=== PATIENT | female | born 1985 ===

== ENCOUNTER 2017-08-18 18:55 | Emergency (ER) | payer SELFPAY ==
[2017-08-18 19:21] VITALS: BMI 39.2
== END 2017-08-18 20:38 | disposition home or self-care (01) ==
LOC: H.EROB2 18:55
DX: O47.1 False labor at or after 37 completed weeks of gestation (principal); O26.93 Pregnancy related conditions, unspecified, third trimester; R10.2 Pelvic and perineal pain; O26.853 Spotting complicating pregnancy, third trimester; Z3A.38 38 weeks gestation of pregnancy

== ENCOUNTER 2017-08-18 23:11 | Inpatient (IN) | payer MEDICAID, SELFPAY ==
[2017-08-18 19:21] VITALS: BMI 39.2
[2017-08-18] MEDS ORDERED: Oxytocin 30 units/LR 500ML 30 U/500 ML BAG IV SCH (23:45)
[2017-08-18] MEDS ORDERED: Lactated Ringer's 1,000 ML IV SCH ×2 (23:45)
[2017-08-19] MEDS ORDERED: Oxytocin 10 Units/ml Inj ONE
[2017-08-19] MEDS ORDERED: Oxytocin 10 Units/ml Inj IM ONE (00:05)
--- NOTE | 2017-08-19 00:10 | OBDS ---
MATERNAL INFORMATION Provider Comments: Uncomplicated Spontaneous Vaginal delivery of a viable male infant with BW of and scores of 9 and 9 delivered in cephalic presentation over an intact perineum. Loose true knot seen on the umbilical cord. EBL- 200mls LABOR SUMMARY EDC: 08/27/2017 00:00 LABOR INFORMATION Group B Beta Strep: Negative
[2017-08-19] MEDS ORDERED: Benzocaine/Menthol SPRAY TOP PRN ×2 (00:21→02:08)
[2017-08-19] MEDS ORDERED: Oxycodone/Acetaminophen 5/325 mg Tab PO PRN ×2 (00:21→02:08)
--- NOTE | 2017-08-19 00:21 | OBADHP ---
Datetime: 08/18/2017 23:54 Admit Comment, IP Provider: 32 y/o F at 38.5 weeks GA, PUSHPA 08/27/17 by 10 weeks US, presents d ue to regular and painful CTX that are now every 2 minutes. Pt also report scant vaginal bleeding tod ay. No LOF. FM present. All systems reviewed and negative except as above. NKDA Meds: PNV PN Care: Dr Cummins at [facility] PN labs: blood type A pos, antibody neg, GBS neg, RPR neg, HIV neg. OBHx: . 3x . PMHx: denied PSHx: denied FHx: NC SHx: denies tobacco, alcohol or rec drugs. A/P 32 y/o F with IUP at 38.5 weeks GA, in active labor. --Initiate labor protocol. Case discussed with Dr Ramirez, OB salesperson men's hats GTolentino PGY-1. Pelvic Type - PN: Adequate Extremities - PN: Normal Abdomen - PN: Normal Back - PN: Normal Lungs - PN: Normal Heart - PN: Normal HEENT - PN: Normal General - PN: Normal FHR - Baseline A Provider: 150 IP Hx Assessment: The History has been Reviewed and is Current Vital Signs Provider: Reviewed IP Chief Complaint: Uterine contractions; Maternal discomfort NICHD Variability Prov Fetus A: Moderate 6-25bpm NICHD Accel Fetus A IP Provider: 15X15 FHR Category Provider Fetus A: Category I Dilatation, Provider: 9 Effacement, Provider: 100 Station, Provider: 0 Genitourinary Exam: Normal EGA AdmitDate IP: 38.6 IP Adm Impression: Term, intrauterine ; Active labor IP Admit Plan: Admit to unit; Initiate labor protocol Datetime: 08/18/2017 20:30 Thyroid - PN: Normal Neurologic - PN: Normal Contraction Comments Provider: every _10 min, irregular Comments, ACOG Physical Exam: Bedside US: cephalic presentation.
[2017-08-19 01:06] LABS: BASO % 0.3 % (0.0-2.0); EOS % 0.2 % (0.0-4.0); HEMOGLOBIN 13.2 g/dL (12.0-16.0); LYMPH # 1.6 K/uL (1.0-4.3); LYMPH % 14.8 % (20.0-40.0); MEAN CELL VOLUME 88.3 fl (81.0-99.0); MEAN CORPUSCULAR HEMOGLOBIN 30.2 pg (27.0-31.0); MEAN CORPUSCULAR HGB CONC 34.2 g/dL (33.0-37.0); MEAN PLATELET VOLUME 9.4 fl (7.2-11.7); MONO # 0.5 K/uL (0.0-0.8); MONO % 4.8 % (0.0-10.0); NEUT # 8.5 K/uL (1.8-7.0); NEUT % 79.9 % (50.0-75.0); NRBC % 0.1 % (0.0-0.0); RBC 4.38 Mil/uL (3.80-5.20); WHITE BLOOD COUNT 10.7 K/uL (4.8-10.8)
[2017-08-19 01:15] VITALS: O2SAT 100
[2017-08-19] MEDS ORDERED: Lactated Ringer's 1,000 ML IV SCH (02:08)
--- NOTE | 2017-08-19 02:11 | CP.PCM.PCO ---
Physician Communication Note - Physician Communication Note Physician Communication Note: Pt at increased risk for post- depression.
[2017-08-19 06:37] LABS: HEMOGLOBIN 12.2 g/dL (12.0-16.0); MEAN CELL VOLUME 88.5 fl (81.0-99.0); MEAN CORPUSCULAR HEMOGLOBIN 29.9 pg (27.0-31.0); MEAN CORPUSCULAR HGB CONC 33.8 g/dL (33.0-37.0); RBC 4.06 Mil/uL (3.80-5.20); RED CELL DISTRIBUTION WIDTH 13.8 % (11.5-14.5); WHITE BLOOD COUNT 12.4 K/uL (4.8-10.8)
--- NOTE | 2017-08-19 09:27 | OBPPN ---
Datetime: 08/19/2017 06:08 PP Pain Prov: Within normal limits PP Nausea Prov: Denies PP Flatus Prov: No PP BM Prov: No PP Heart Prov: Normal PP Lungs Prov: Normal PP Abdomen/Uterus Prov: Normal PP CVA Tenderness Prov: Normal PP Extremities Prov: Normal PP C/S Incision Prov: Not Applicable PP Progress Prov: Normal PP Impression Prov: Normal progression PP Plan Prov: Continue present management PP Progress Note Prov: 32 y/o F now , s/p on 08/18/17 at 23:56. Pt c/o pelvic pain that improves partially with Ibuprofen. Pt afebrile, tolerating PO, has good appetite with NO acute event s overnight. Pt able to ambulate. Pt has not urinated since delivery, not passing gases and NO bowel movement yet. Pt with NO difficulties. Lochia more than menses. Pt denies headache, diz ziness, CP, SOB, N/V or calf tenderness All systems reviewed and negative except as above. O: PE: -Gen: A_O, resting comfortably on bed, NAD. -Lungs: CTAB, No W/R/R. -CV: RRR, S1 and S2 present. -ABD: soft, BS +, firm fundus at umbilicus. -EXT: No cyanosis, non-tender calves. A/P: 32 y/o F on PPD 1, stable, recovering from NVD --Continue with post- management. -- and ambulation encouraged. --Anticipated discharge 08/20/17. Case discussed with OB command and control systems integrator Pio PGY-[address] Brandt: Patient evaluated independently and I agree with the above IP PP Procedures: None Vital Signs Provider PP: Reviewed
--- NOTE | 2017-08-19 14:21 | OBHP ---
Datetime: 08/18/2017 23:54 IP Adm Impression: Term, intrauterine ; Active labor IP Admit Plan: Admit to unit; Initiate labor protocol Admit Comment, IP Provider: 32 y/o F at 38.5 weeks GA, PUSHPA 08/27/17 by 10 weeks US, presents d ue to regular and painful CTX that are now every 2 minutes. Pt also report scant vaginal bleeding tod ay. No LOF. FM present. All systems reviewed and negative except as above. NKDA Meds: PNV PN Care: Dr Cummins at [facility] PN labs: blood type A pos, antibody neg, GBS neg, RPR neg, HIV neg. OBHx: . 3x . PMHx: denied PSHx: denied FHx: NC SHx: denies tobacco, alcohol or rec drugs. A/P 32 y/o F with IUP at 38.5 weeks GA, in active labor. --Initiate labor protocol. Case discussed with Dr Ramirez, OB merchandising consultant GToleniraj PGY-1. Pelvic Type - PN: Adequate Extremities - PN: Normal Abdomen - PN: Normal Back - PN: Normal Lungs - PN: Normal Heart - PN: Normal HEENT - PN: Normal General - PN: Normal FHR - Baseline A Provider: 150 IP Hx Assessment: The History has been Reviewed and is Current EGA AdmitDate IP: 38.6 Vital Signs Provider: Reviewed IP Chief Complaint: Uterine contractions NICHD Variability Prov Fetus A: Moderate 6-25bpm NICHD Accel Fetus A IP Provider: 15X15 FHR Category Provider Fetus A: Category I Dilatation, Provider: 9 Effacement, Provider: 100 Station, Provider: 0 Genitourinary Exam: Normal Datetime: 08/18/2017 20:30 Thyroid - PN: Normal Neurologic - PN: Normal Contraction Comments Provider: every _10 min, irregular Comments, ACOG Physical Exam: Bedside US: cephalic presentation.
--- NOTE | 2017-08-20 10:32 | OBDCSUM ---
Datetime: 08/20/2017 06:17 Discharged to, Provider: Home Follow up at, Provider: [facility] Disch Instr Activity: Normal activity; May be up to bathroom; May be up for meals; May Shower Disch Instr Diet: Regular Discharge Instructions, Provider: Routine instructions given Discharge Diagnosis, Provider: Term Delivered Discharge Time: 08/20/2017 06:17 Follow up in weeks, Provider: 6 weeks Disch Referrals: None Disch Activity Restrictions: No exercising; No lifting; Minimize stair-climbing; No sexual activity; Nothing in vagina - [place], tampons, douche Discharge Comment, Provider: -F/u with PCP, Dr Cummins in 6 weeks (09/24/17 at 11:30am) for post- examination. -Rx for Ibuprofen for pain and Colace for bowel movement enhancement - and ambulation encouraged. -Pt instructed to go to ER if fever, intolerable pain, nausea or profuse vaginal bleeding. [facility] - pt seen on [facility] this morning. Agree with PGY1 note YINA
--- NOTE | 2017-08-20 10:32 | OBPPN ---
Datetime: 08/20/2017 06:11 PP Pain Prov: Within normal limits PP Nausea Prov: Denies PP Flatus Prov: No PP BM Prov: No PP Heart Prov: Normal PP Lungs Prov: Normal PP Abdomen/Uterus Prov: Normal PP Lochia Prov: Normal PP CVA Tenderness Prov: Normal PP Extremities Prov: Normal PP C/S Incision Prov: Not Applicable PP Progress Prov: Abnormal PP Impression Prov: Normal progression PP Plan Prov: Discharge PP Progress Note Prov: 32 y/o F now , s/p on 08/18/17. Pt c/o headache that began last night, constant and moderare in intensity. Pelvic pain is minimal. Pt afebrile, tolerating PO, has go od appetite with NO acute events overnight. Pt able to ambulate. Pt voiding with no issues. Pt is not passing gases and NO bowel movement. Pt feels the urge for bowel movement but has not done so yet. P t pumping her breastmilk due to hypoglycemic . Lochia less than menses. Pt denies dizziness, C P, SOB, N/V or calf tenderness All systems reviewed and negative except as above. O: PE: -Gen: A_O, resting comfortably on bed, NAD. -Lungs: CTAB, No W/R/R. -CV: RRR, S1 and S2 present. -ABD: soft, BS +, firm fundus below umbilicus. -EXT: No cyanosis, non-tender calves. A/P: 32 y/o F on PPD 1, stable, recovering well from NVD. --Will discharge home today. --F/u with PCP, Dr Cummins in 6 weeks (09/24/17 at 11:30am) for post- examination. --Rx for Ibuprofen for pain and Colace for bowel movement enhancement -- and ambulation encouraged. --Pt instructed to go to ER if fever, intolerable pain, nausea or profuse vaginal bleeding. Case discussed with OB market intelligence consultant Pio PGY-1 [facility]. Agree with PGY1 note YINA BERG PP Procedures: None Vital Signs Provider PP: Reviewed
[2017-08-20 17:52] VITALS: BP 112/76; PULSE 83; RESP 18; TEMP 98.2
== END 2017-08-20 12:45 | disposition home or self-care (01) | DRG 775 ==
LOC: H.EROB2 23:11 → H.L&D 23:50 → H.OB/GYN 08-19 02:17
PROVIDERS: ADMIT Obstetrics & Gynecology; ATTEND Obstetrics & Gynecology
PROC: 10E0XZZ Delivery of Products of Conception, External Approach (ICD-10-PCS; principal; 2017-08-18)
PROC: 4A1HXCZ Monitoring of Products of Conception, Cardiac Rate, External Approach (ICD-10-PCS; 2017-08-18)
DX: O69.2XX0 Labor and delivery complicated by other cord entanglement, with compression, not applicable or unspecified (principal); Z37.0 Single live birth; Z3A.38 38 weeks gestation of pregnancy

== ENCOUNTER 2018-05-22 16:48 | Inpatient (IN) | payer MEDICAID, OTHER ==
[2018-05-22 16:49] VITALS: BMI 39.2
[2018-05-22] MEDS ORDERED: Clindamycin 600mg/50ml D5W 600 MG/50 ML VIAL IVPB STA (18:35)
--- NOTE | 2018-05-22 18:47 | ED PDOC ---
Lower Extremity Pain/Injury Time Seen by Provider: 05/22/18 17:46 Chief Complaint (Nursing): Abnormal Skin Integrity Chief Complaint (Provider): Abnormal Skin Integrity History Per: Patient History/Exam Limitations: no limitations Onset/Duration Of Symptoms: Days (x5) Current Symptoms Are (Timing): Still Present Additional Complaint(s): 33 y/o female presents to the ED for the swelling of her right buttock and perineal area onset 5 days ago. Pt. reports tactile fever yesterday. Otherwise, patient denies abdominal pain, urinary symptoms, difficulty with BMs or any other symptoms. PMD: Josh Castillo Past Medical History Reviewed: Historical Data, Nursing Documentation, Vital Signs Vital Signs: Last Vital Signs Temp 99.8 F H 05/22/18 17:25 Pulse 94 H 05/22/18 17:25 Resp 16 05/22/18 17:25 BP 124/75 05/22/18 17:25 Pulse Ox 99 05/22/18 17:25 - Medical History PMH: No Chronic Diseases - Surgical History Surgical History: No Surg Hx - Family History Family History: States: Unknown Family Hx - Home Medications Home Medications: Ambulatory Orders Medication Instructions Recorded RX: Vit No.126/Iron/Folic 1 tab PO DAILY 08/19/17 [Classic Tablet] RX: Docusate [Colace] 100 mg PO BID #60 cap 08/20/17 RX: Ibuprofen [Motrin Tab] 600 mg PO Q6 PRN #30 tab 08/20/17 - Allergies Allergies/Adverse Reactions: Allergies Allergy/AdvReac Type Severity Reaction Status Date / Time No Known Allergies Allergy Verified 05/22/18 17:25 Review of Systems ROS Statement: Except As Marked, All Systems Reviewed And Found Negative Constitutional: Positive for: Fever Musculoskeletal: Positive for: Other (swelling of right buttocks) Physical Exam - Reviewed Nursing Documentation Reviewed: Yes Vital Signs Reviewed: Yes - Physical Exam Appears: Positive for: Well, No Acute Distress Head Exam: Positive for: ATRAUMATIC, NORMAL INSPECTION, NORMOCEPHALIC Skin: Positive for: Normal Color, Warm, Dry Eye Exam: Positive for: EOMI, Normal appearance, PERRL Cardiovascular/Chest: Positive for: Regular Rate, Rhythm. Negative for: Murmur Respiratory: Positive for: Normal Breath Sounds. Negative for: Wheezing Gastrointestinal/Abdominal: Positive for: Normal Exam, Soft Extremity: Positive for: Normal ROM, Swelling (large area of erythema, tenderness, swelling to right perineal area extending to perinal area with (+) induration, (-) obvious fluctuance. (+) Mild tenderness with no swelling or fluctuance felt on rectal exam ) Neurologic/Psych: Positive for: Alert, Oriented (x3). Negative for: Motor/Sensory Deficits - Laboratory Results Result Diagrams: 05/22/18 18:45 05/22/18 18:45 - ECG ECG: Positive for: Interpreted By Me, Viewed By Me ECG Rhythm: Positive for: Sinus Rhythm. Negative for: ST/T Changes Interpretation Of ECG: no acute ischemic changes noted. QTc at 480 ms Rate: 100 O2 Sat by Pulse Oximetry: 99 (RA) Pulse Ox Interpretation: Normal - Radiology X-Ray: Interpreted by Me X-Ray Interpretation: No Acute Disease Medical Decision Making Medical Decision Making: Time: 17:58 -CMP STAT -UPreg -CBC Time: 18:35 -Pelvis CT - Cleocin 600 mg in 50 ml IVPB -IV access established and labs sent -Case was discussed with surgical technology instructor and Pelvis CT ordered, surg will consult. Time: 21:02 -Zosyn 3.375 gm in 100ml IVPB -NS IV 100mls/hr Pt. made NPO Time:21:[address] FINDINGS: APPENDIX: No evidence of acute appendicitis on CT examination. PERITONEUM: Right perianal enhancing fluid collection is noted measuring 6 x 4.5 x 3.5 cm compatible with an abscess. LYMPH NODES: No lymphadenopathy is evident. REPRODUCTIVE: Unremarkable as visualized. VASCULATURE: No evidence of abdominal aortic aneurysm. BONES: No aggressive appearing osseous lesion. No acute osseous pathology evident. MISCELLANEOUS: Adjacent subcutaneous swelling is noted compatible with cellulitis. IMPRESSION: 1. Right perianal enhancing fluid collection is noted measuring 6 x 4.5 x 3.5 cm compatible with an abscess. 2. Adjacent subcutaneous swelling is noted compatible with cellulitis. Time:21:21 --Patient will be admitted to inpatient care due to perineal abscess and the need for surgical intervention under service of Dr. Darrell Gonzales. Liver enzymes noted to be elevated. Discussed with patient who denies daily drinking and denies any abdominal pain. Repeat abd. exam, abd. soft/nt. Scribe Attestation: Documented by Mallory Vital , acting as a scribe for Sonia Gamino. Provider Scribe Attestation: All medical record entries made by the Scribe were at my direction and personally dictated by me. I have reviewed the chart and agree that the record accurately reflects my personal performance of the history, physical exam, medical decision making, and the department course for this patient. I have also personally directed, reviewed, and agree with the discharge instructions and disposition. Disposition - Clinical Impression Clinical Impression: Abscess - Patient ED Disposition Is Patient to be Admitted: Yes Doctor Will See Patient In The: Hospital Counseled Patient/Family Regarding: Studies Performed, Diagnosis - Disposition Disposition Time: 22:30 Condition: STABLE
[2018-05-22 18:54] LABS: BASO # 0.1 K/uL (0.0-0.2); BASO % 0.5 % (0.0-2.0); EOS % 0.2 % (0.0-4.0); HEMOGLOBIN 12.8 g/dL (12.0-16.0); LYMPH # 1.3 K/uL (1.0-4.3); LYMPH % 11.3 % (20.0-40.0); MEAN CELL VOLUME 85.9 fl (81.0-99.0); MEAN CORPUSCULAR HEMOGLOBIN 28.4 pg (27.0-31.0); MEAN CORPUSCULAR HGB CONC 33.1 g/dL (33.0-37.0); MEAN PLATELET VOLUME 8.2 fl (7.2-11.7); MONO # 0.8 K/uL (0.0-0.8); NEUT # 9.1 K/uL (1.8-7.0); RBC 4.52 Mil/uL (3.80-5.20); RED CELL DISTRIBUTION WIDTH 13.1 % (11.5-14.5); WHITE BLOOD COUNT 11.2 K/uL (4.8-10.8)
[2018-05-22 19:07] LABS: ALB/GLOB RATIO 1.1 (1.0-2.1); ALBUMIN 4.5 g/dL (3.5-5.0); ALT/SGPT 252 U/L (9-52); AST/SGOT 159 U/L (14-36); BLOOD UREA NITROGEN 8 mg/dl (7-17); CALCIUM 9.4 mg/dL (8.4-10.2); GFR NON-AFRICAN AMERICAN > 60
[2018-05-22] MEDS ORDERED: Sodium Chloride 0.9% 50 ML IV ONE (19:57)
[2018-05-22] MEDS ORDERED: Iohexol 300 100 ML IJ ONE (19:57)
[2018-05-22] MEDS ORDERED: Piperacillin/Tazobact 3.375 GM in Sodium Chloride 0.9% 100 ML IVPB STA (21:02)
[2018-05-22] MEDS ORDERED: Piperacillin/Tazobact 3.375 gm Inj IVPB ONE (21:26)
[2018-05-22] MEDS: Sodium Chloride 0.9% 1,000 ML IV SCH (21:43)
--- NOTE | 2018-05-22 21:43 | CP.PCM.HP ---
History of Present Illness - History of Present Illness History of Present Illness: General Surgery H&P CC: Painful R gluteus area. HPI: 33F presents to the ED for pain and swelling of her right gluteus and perianal region, first noticed Saturday. The swelling and pain has progressively worsened and she decided to come in today. She has never had this before. Pt reports subjective fever yesterday and chills today. Reports increased pain upon sitting. Denies headache, dizziness, chest pain, SOB, abd pain, dysuriam, hematuria, melena, hematochezia, pain on defecation.. PMH: Denies PSH: Denies SH: No tobacco, EtOH, or drug use. FH: noncontributory All: NKDA Meds: Vitamins Present on Admission - Present on Admission Any Indicators Present on Admission: No Review of Systems - Review of Systems All systems: reviewed and no additional remarkable complaints except (as per HPI) Past Patient History - Past Social History Smoking Status: Never Smoked Meds Allergies/Adverse Reactions: Allergies Allergy/AdvReac Type Severity Reaction Status Date / Time No Known Allergies Allergy Verified 05/22/18 17:25 Physical Exam - Constitutional Appears: Non-toxic, No Acute Distress - Head Exam Head Exam: ATRAUMATIC, NORMOCEPHALIC - Eye Exam Eye Exam: EOMI. absent: Scleral icterus - ENT Exam ENT Exam: Mucous Membranes Moist - Neck Exam Neck exam: Positive for: Full Rom Additional comments: trachea midline - Respiratory Exam Respiratory Exam: NORMAL BREATHING PATTERN. absent: Respiratory Distress - Cardiovascular Exam Cardiovascular Exam: RRR, +S1, +S2 - GI/Abdominal Exam GI & Abdominal Exam: Soft. absent: Distended, Tenderness - Rectal Exam Rectal Exam: absent: Bloody Stool Additional comments: External: ~6cm area of induration and erythema at 9 oclock. No fluctuation felt. no drainage seen. ROWENA: TTP in 9 oclock direction. No mass or fistula opening felt. No blood seen. Results - Vital Signs Recent Vital Signs: Last Vital Signs Temp 99.8 F H 05/22/18 17:25 Pulse 94 H 05/22/18 17:25 Resp 16 05/22/18 17:25 BP 124/75 05/22/18 17:25 Pulse Ox 99 05/22/18 21:36 - Labs Result Diagrams: 05/22/18 18:45 05/22/18 18:45 Labs: Laboratory Results - last 24 hr 05/22/18 05/22/18 18:45 18:45 WBC 11.2 H RBC 4.52 Hgb 12.8 Hct 38.8 MCV 85.9 D MCH 28.4 MCHC 33.1 RDW 13.1 Plt Count 242 MPV 8.2 Neut % (Auto) 81.0 H Lymph % (Auto) 11.3 L Benzie % (Auto) 7.0 Eos % (Auto) 0.2 Baso % (Auto) 0.5 Neut # (Auto) 9.1 H Lymph # (Auto) 1.3 Benzie # (Auto) 0.8 Eos # (Auto) 0.0 Baso # (Auto) 0.1 Sodium 138 Potassium 3.9 Chloride 101 Carbon Dioxide 26 Anion Gap 15 BUN 8 Creatinine 0.6 L Est GFR ( Amer) > 60 Est GFR (Non-Af Amer) > 60 Random Glucose 106 H Calcium 9.4 Total Bilirubin 1.0 AST 159 H ALT 252 H D Alkaline Phosphatase 153 H Total Protein 8.6 H Albumin 4.5 Globulin 4.2 H Albumin/Globulin Ratio 1.1 - Imaging and Cardiology CT scan - pelvis Status: Image reviewed by me, Report reviewed by me Assessment & Plan - Assessment and Plan (Free Text) Assessment: 33F with R perianal abscess Plan: Apply warm packs to R gluteus region NPO p MN IVF Zosyn Zofran Plan for OR Tomorrow Consent in Chart D/W Dr. Christian Davis PGY4 Decision To Admit - Pt Status Changed To: Hospital Disposition Of: Inpatient - Admit Certification Admit to Inpatient:: After my assessment, the patient will require hospita lization for at least two midnights. This is because of the severity of symptoms shown, intensity of services needed, and/or the medical risk in this patient being treated as an outpatient. - . Bed Request Type: Med/Surg Admitting Physician: Cade Gonzales
[2018-05-22] MEDS ORDERED: Morphine 4 MG/ML VIAL IVP PRN ×2 (21:45)
[2018-05-22 21:59] LABS: INR 1.3; PROTHROMBIN TIME 14.6 Seconds (9.8-13.1)
[2018-05-22 22:02] LABS: PARTIAL THROMBOPLASTIN TIME 33.8 Seconds (25.6-37.1)
[2018-05-23] MEDS: Piperacillin/Tazobact 3.375 GM in Sodium Chloride 0.9% 100 ML IVPB SCH ×4 (04:13→21:01)
[2018-05-23] MEDS: Sodium Chloride 0.9% 1,000 ML IV SCH ×2 (08:35→18:41)
[2018-05-23] MEDS ORDERED: Lactated Ringer's 1,000 ML IV ONE (10:35)
[2018-05-23] MEDS ORDERED: ceFAZolin IV 1 gm in Dextrose 1 GM/50 ML BAG IVPB ONE (10:52)
[2018-05-23] MEDS ORDERED: Propofol 10 mg/ml Inj (20 ML) ONE (11:03)
[2018-05-23] MEDS ORDERED: Midazolam 2 MG/2 ML VIAL ONE (11:03)
--- NOTE | 2018-05-23 11:04 | CT ---
Date of service: 05/22/2018 PROCEDURE: CT pelvis HISTORY: right perineal/buttock abscess COMPARISON: Not available TECHNIQUE: 2.5 mm contiguous axial sections were acquired through the pelvis, following intravenous contrast administration. Sagittal and coronal images were reformatted from the axial scan Contrast administered: 90 mL Omnipaque 300 Total exam DLP: 475.70 mGy-cm This CT exam was performed using 1 or more of the following dose reduction techniques: Automated exposure control, adjustment of the mA and/or kV according to patient size, and/or use of iterative reconstruction technique. FINDINGS: There is an irregular collection of low attenuation material in the medial upper thigh/perineum, with peripheral enhancement. It measures roughly 1.8 x 3.2 by 2.9 cm. There is no evidence of direct extension to the anal rectal complex. There is stranding of the surrounding subcutaneous fat consistent with cellulitis. There thickening of the adjacent skin of the right medial thigh and of the medial right buttock, consistent with cellulitis. There is low attenuation material seen tracking along the right ischiocavernosus muscle (series 2, image 88). This may represent edema or purulent material. There is focal linear enhancement seen medial to this, of uncertain significance. No other collection is identified. Evaluation of the soft tissue contents of the pelvis demonstrates no mass or fluid collection. The uterus and ovaries are unremarkable. The bladder is normal in appearance. No abnormal bowel loops are appreciated. There is grade 1 anterolisthesis at L5-S1 with bilateral L5 spondylolysis. IMPRESSION: Right perineal/thigh collection consistent with abscess with surrounding cellulitis involving the medial right upper thigh and right medial buttock. There also edema or purulent material tracking along the right ischiocavernosus muscle. The preliminary findings for this examination were reported by [facility] Radiology at 9:19 p.m. on 05/22/2018. There is discordance of this report with the preliminary findings. Fluid or edema along right ischiocavernosus muscle was not described in the preliminary report of this examination.
[2018-05-23] MEDS ORDERED: Lidocaine 1% w Epi 1:100,000 Inj ONE ×2 (11:25→11:58)
--- NOTE | 2018-05-23 12:19 | PCM.SURG1 ---
Surgeon's Initial Post Op Note - Surgeon's Notes Surgeon: Cade Gonzales MD Senior Linux Administrator: Ignacio Young, PGY3 Pre-Operative Diagnosis: Perianal abscess Operative Findings: Perianal abscess Post-Operative Diagnosis: Perianal abscess Operation Performed: Incision and drainage of perineal abscess Specimen/Specimens Removed: perineal skin, purulent material Estimated Blood Loss: EBL {In ML}: 10 Date of Surgery/Procedure: 05/23/18 Time of Surgery/Procedure: 11:15
--- NOTE | 2018-05-23 12:27 | CARD ---
APPROVED REPORT Date of service: 05/22/2018 EKG Measurement Heart [id number] <Conclusion> Normal sinus rhythm Normal Electrocardiogram
--- NOTE | 2018-05-23 12:45 | RAD ---
Date of service: 05/22/2018 HISTORY: preop COMPARISON: No prior. TECHNIQUE: Chest PA and lateral FINDINGS: LUNGS: No active pulmonary disease. PLEURA: No significant pleural effusion identified. No pneumothorax apparent. CARDIOVASCULAR: No aortic atherosclerotic calcification present. Normal cardiac size. No pulmonary vascular congestion. OSSEOUS STRUCTURES: No significant abnormalities. VISUALIZED UPPER ABDOMEN: Normal. OTHER FINDINGS: None. IMPRESSION: No active disease.
[2018-05-23] MEDS: HYDROmorphone 0.5 mg/0.5 ml ISec IVP PRN ×2 (12:57→13:14)
[2018-05-23] MEDS ORDERED: DiphenhydrAMINE 50 mg/ml Inj IVP STA (14:32)
[2018-05-23] MEDS ORDERED: DiphenhydrAMINE 50 mg/ml Inj ONE (14:35)
[2018-05-23] MEDS: Oxycodone/Acetaminophen 5/325 mg Tab PO PRN (20:36)
[2018-05-24] MEDS: Lactated Ringer's 1,000 ML IV SCH ×2 (00:52→04:21)
[2018-05-24] MEDS: Piperacillin/Tazobact 3.375 GM in Sodium Chloride 0.9% 100 ML IVPB SCH ×2 (03:05→09:19)
[2018-05-24] MEDS: Oxycodone/Acetaminophen 5/325 mg Tab PO PRN (03:10)
--- NOTE | 2018-05-24 06:41 | CP.PCM.PN ---
Subjective - Date & Time of Evaluation Date of Evaluation: 05/24/18 Time of Evaluation: 06:38 - Subjective Subjective: SURGERY NOTE FOR DR. REGALADO 33F seen and examined at bedside. No acute events overnight, Patient continues to have pain in anal region, she is tolerating diet, denies nausea or vomiting. Objective - Vital Signs/Intake and Output Vital Signs (last 24 hours): Temp Pulse Resp BP Pulse Ox 98.3 F 66 18 100/64 99 05/24/18 04:36 05/24/18 04:36 05/24/18 04:36 05/24/18 04:36 05/24/18 04:36 Intake and Output: 05/23/18 05/24/18 18:59 06:59 Intake Total 900 Balance 900 - Medications Medications: Current Medications Acetaminophen (Tylenol 650 Mg Supp) 650 mg MA ONCE PRN PRN Reason: Fever >100.4 F Last Admin: 05/23/18 06:07 Dose: 650 mg Piperacillin Sod/Tazobactam (Sod 3.375 gm/ Sodium Chloride) 100 mls @ 100 mls/hr IVPB Q6 TRAV; Protocol Last Admin: 05/24/18 03:05 Dose: 100 mls/hr Oxycodone/Acetaminophen (Percocet 5/325 Mg Tab) 1 tab PO Q4 PRN PRN Reason: Other Stop: 05/26/18 12:24 Last Admin: 05/24/18 03:10 Dose: 1 tab - Labs Labs: 05/22/18 18:45 05/22/18 18:45 PT 14.6 Seconds (9.8-13.1) H 05/22/18 21:35 INR 1.3 05/22/18 21:35 APTT 33.8 Seconds (25.6-37.1) 05/22/18 21:35 - Constitutional Appears: Non-toxic, No Acute Distress - Respiratory Exam Respiratory Exam: Clear to Ausculation Bilateral, NORMAL BREATHING PATTERN - Cardiovascular Exam Cardiovascular Exam: REGULAR RHYTHM, +S1, +S2 - GI/Abdominal Exam GI & Abdominal Exam: Soft. absent: Distended, Firm, Guarding, Rigid, Tenderness, Rebound - Rectal Exam Additional comments: site of I&D has packing with curlex, purulent drainage - Neurological Exam Neurological Exam: Alert, Awake - Psychiatric Exam Psychiatric exam: Normal Affect, Normal Mood - Skin Skin Exam: Dry, Intact, Normal Color, Warm Assessment and Plan - Assessment and Plan (Free Text) Assessment: 33 with perianal abscess, s/p Incision and drainage POD#1 Plan: - Continue diet - Pain control - Stool softeners - continue antibiotics - await wound culture - continue warm compresses - Replace packing - Wound care education Further recs discuss with Dr. Christian Young, PGY3
[2018-05-24 08:19] VITALS: RESP 20
[2018-05-24 09:03] LABS: BASO % 0.6 % (0.0-2.0); EOS # 0.1 K/uL (0.0-0.7); EOS % 0.9 % (0.0-4.0); HEMOGLOBIN 11.1 g/dL (12.0-16.0); LYMPH # 1.7 K/uL (1.0-4.3); LYMPH % 21.8 % (20.0-40.0); MEAN CELL VOLUME 87.2 fl (81.0-99.0); MEAN CORPUSCULAR HEMOGLOBIN 28.8 pg (27.0-31.0); MEAN PLATELET VOLUME 7.9 fl (7.2-11.7); MONO # 0.5 K/uL (0.0-0.8); MONO % 6.6 % (0.0-10.0); NEUT # 5.4 K/uL (1.8-7.0); NEUT % 70.1 % (50.0-75.0); RBC 3.84 Mil/uL (3.80-5.20); RED CELL DISTRIBUTION WIDTH 12.8 % (11.5-14.5); WHITE BLOOD COUNT 7.8 K/uL (4.8-10.8)
[2018-05-24 13:04] VITALS: BP 102/65; PULSE 69; TEMP 98.7; O2SAT 99
--- NOTE | 2018-06-04 09:19 | PCM.OP ---
Operative Report - Operative Report Date of Surgery/Procedure: 05/23/18 Time of Surgery/Procedure: 11:00 Surgeon: Cade Gonzales MD Mold Sander: Reagan Parra DO (PGY 3 resident) Anesthesia/Sedation: See main Pre-Operative Diagnosis: See main Post-Operative Diagnosis: See main Indication for Surgery: See main Operative Findings: See main Procedure/Operation Description: ANESTHESIA: MAC; 1% lidocaine with epinephrine+ 0.25% marcaine local PREOPERATIVE DIAGNOSIS: right perirectal abscess; POSTOPERATIVE DIAGNOSIS: right perirectal abscess; fistula en ano GROSS FINDINGS: Right perirectal gluteal abscess with fistulous opening at 11 O'clock position; supra-sphincteric; No deep infection or involvement of abdominal wall fascia or evidence of INDICATION: The patient is a 33 year old female with perirectal pain over the past week, progressively worsening with subjective fevers presented to ED and CT evidence of perirectal abscess. Rectal exam painful. Details of HPI as documented in patients chart. All potential risks, benefits, and complications of the procedure were discussed with the patient, and informed consent was obtained prior to the operation. PROCEDURE PERFORMED: Examination under anesthesia; Incision and drainage (I&D) of perirectal abscess; Fistulotomy DETAILS OF OPERATION: Patient was taken to operating room and placed supine on the operating room table. Arms placed in neutral position on arms boards. SCD boots were placed for DVT prophylaxis. Following successful MAC sedation and LMA by anesthesia, the patients legs were placed on padded foot rests for modified lithotomy position, taking care to pad pressure points and place in neutral position avoiding any undo stretching of the joints. The patient voided in pre-op immediately prior to surgery and no andino was placed. Upper body warmer placed. The hair was shaved from around the operative site. The perineum was prepped and draped in sterile fashion. A safety strap was then loosely placed across upper abdomen/lower chest. Patient received 2 grams of Ancef within 30 minutes prior to incision. A time out was performed prior to incision. The patients legs where raised in lithotomy position to access the abscess area, which was in the right gluteal side. A digital rectal exam was performed and grossly normal with a fullness in the right pararectal location consistent with CT findings of 6x5cm abscess in that location. A small fistulous opening noted iat 11 oclock position with purulent fluid expressable with pressure on perirectal region of fullness. Gloves were changed and the skin overlying the point of maximaum fullness was incised in a cruciate fashon 2cm wide and 1.cm vertically lateral to the sphincter muscle. Immediately purulent fluid was expressed and culture taken and sent off. The skin edges of the cruciate incision and all necrotic tissue was sharply removed. The cavity was digitally explored and septae bluntly divided with hemostat to access the full cavity and tract with lay more posteromedially. A total of approximately 60mL of purulent fluid was expressed. The cavity was irrigated with antibiotic infused saline using a pulse die out worker. A total of 3L of irrigation fluid was used. The fistulous opening was then identified and a probe inserted to identify the fistulous tract to the wound opening. The tract was then openined used electrocautery and ablated, thus performing a fistulotmy. The wound was then irrigated again and hemostasis acheived. Finally, a saline soaked kerlix was used to pack the wound and dressed with ABD pads and tape, taking care not to cover anus. Estimated blood loss was minimal. The patient tolerated the procedure well and was sent for recovery in good condition. I was present for the entirety of the operation. Sponge needle, and instrument counts were correct. Estimated Blood Loss: 25mL Complications: none Specimen: Fluid culture, niraj-rectal abscess Discharge & Condition: See main
== END 2018-05-24 17:19 | disposition home or self-care (01) | DRG 221 ==
LOC: H.ER 16:48 → OBSVTOIN 21:21 → H.ERHOLD 21:21 → INTOOBSV 21:24 → UNDOADMOB 21:24 → H.MEDSURG1 23:07
PROVIDERS: ADMIT Surgery; ATTEND Surgery
PROC: 0DBP0ZZ Excision of Rectum, Open Approach (ICD-10-PCS; 2018-05-23)
PROC: 0D9P0ZZ Drainage of Rectum, Open Approach (ICD-10-PCS; principal; 2018-05-23 09:30)
DX: K61.2 Anorectal abscess (principal); L02.215 Cutaneous abscess of perineum; K61.0 Anal abscess; L02.31 Cutaneous abscess of buttock